=== PATIENT | male | born 2000 | race Caucasian/White ===

== ENCOUNTER 2021-04-15 20:53 | Emergency (ER) | payer SELFPAY ==
[2021-04-15 20:56] VITALS: BP 115/76; PULSE 80; RESP 16; TEMP 36.2; O2SAT 95; BMI 21.5
--- NOTE | 2021-04-15 21:25 | W.ED.GENADLT ---
HPI - General Adult General: Chief complaint: General Medical Stated complaint: poss 96 hr/SI Time Seen by Provider: 04/15/21 21:16 Source: patient Mode of arrival: ambulatory Limitations: no limitations History of Present Illness: HPI narrative: 20-year-old male who is brought here by his mother. His mother states they got an argument tonight he had made suicidal statements. I was able to read her affidavit but she is left right after she had dropped him off. Patient is adamant that he is not suicidal homicidal. Patient here is very calm and cooperative and states that he has been wanting to leave home but his mother is very controlling and tonight they had a argument as he had stated that he was going to move out. He states that she had called the regional director of admissions and made false claims about him being suicidal. He denies being suicidal he states he was angry earlier. Associated symptoms: Deny chest pain, dyspnea, headache(s), nausea, rash or vomiting Review of Systems Const: Denies: fever(s), chills, body aches or change in appetite Eyes: Denies: blurry vision or eye discomfort ENMT: Denies: throat pain or dental pain Card: Denies: chest pain Resp: Denies: dyspnea GI: Denies: abdominal pain, nausea, vomiting or diarrhea : Denies: dysuria Musc: Denies: neck pain or back pain Skin/Breast: Denies: rash Neuro: Denies: headache(s) Psych: Reports: depression and suicidal ideation Abdi/Lymph: Denies: easy bruising All/Imm: Denies: urticaria Physical Exam Const: COMMON NORMALS: no acute distress, patient oriented x3 and healthy appearing HENMT: COMMON NORMALS: normocephalic and atraumatic HEAD & SCALP: normocephalic and atraumatic Eye: COMMON NORMALS: Equal, round and reactive pupils present and EOMs intact bilaterally PUPIL: Yes Equal, round and reactive pupils present Neck/C-Spine: COMMON NORMALS: full ROM and supple Chest: COMMONS NORMALS: normal inspection of the chest and normal palpation of entire chest wall Resp: COMMON NORMALS: normal respiratory effort, No retractions, No use of accessory muscles and clear to auscultation bilaterally AUSCULTATION: clear to auscultation bilaterally Cardio: COMMON NORMALS: regular rate, regular rhythm and No murmurs present (Cardio) RATE: regular rate RHYTHM: regular rhythm GI: COMMON NORMALS: Normal to inspection, nondistended, normoactive bowel sounds present, Soft to palpation, non-tender and no masses PALPATION: Yes Soft to palpation Extremity: COMMON NORMALS: normal to inspection and full ROM Neuro: COMMON NORMALS: patient oriented x3, moves all extremities and no focal motor deficits Psych: COMMON NORMALS: mental status grossly normal, Normal thought process present and cooperative THOUGHT PROCESS: Normal thought process present Skin: COMMON NORMALS: no rashes or lesions noted and no wounds GENERAL SKIN EXAM: no rashes or lesions noted Course Vital Signs: Vital signs: Vital Signs Temperature 97.1 F L 04/15/21 20:56 Pulse Rate 80 04/15/21 20:56 Respiratory Rate 16 04/15/21 20:56 Blood Pressure 115/76 04/15/21 20:56 Pulse Oximetry 95 04/15/21 20:56 MDM - General Adult MDM Narrative: Medical decision making narrative: Patient presents here with depression. He adamantly denies being suicidal. His mother filled out affidavit but left and right after she dropped off and was able to actually speak to her. Patient here is been calm I do believe that he is not suicidal believe he just got angry earlier. I also had patient evaluated by Dr. Aguilar of psychiatry who agrees that he does not believe is suicidal and feels that he is stable for discharge. Patient is to follow-up and return if worsening. He understands agrees to plan. 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
[2021-04-15 21:52] VITALS: PULSE 58; RESP 16; O2SAT 99
== END 2021-04-15 21:53 | disposition home or self-care (01) ==
PROVIDERS: Emergency Provider Emergency Medicine
DX: F32.9 Major depressive disorder, single episode, unspecified (principal)
CPT/HCPCS: 99281